=== PATIENT | female | born 1960 | race Caucasian/White ===

== ENCOUNTER 2018-06-03 17:49 | Outpatient (CLI) | payer OTHER | END 2018-06-03 20:01 | disposition short-term general hospital (02) | LOC: EEVIPCON 17:49 → MCT 17:49 | DX: K76.0 Fatty (change of) liver, not elsewhere classified (principal); N28.1 Cyst of kidney, acquired; K40.90 Unilateral inguinal hernia, without obstruction or gangrene, not specified as recurrent; M47.897 Other spondylosis, lumbosacral region; M43.17 Spondylolisthesis, lumbosacral region; I70.0 Atherosclerosis of aorta | CPT/HCPCS: 74177; Q9967 ==